=== PATIENT | male | born 1980 | race Caucasian/White ===

== ENCOUNTER 2017-08-16 10:01 | Emergency (ER) | payer BC ==
[~2017-08-16] VITALS: Ht 190.5 cm; Wt 115.3 kg
[~2017-08-16 10:01] MED LIST: BACT800T5 PO; CEPH500C3 PO
[2017-08-16 10:06] VITALS: BP 156/99; PULSE 86; RESP 18; TEMP 98.5; O2SAT 99
--- NOTE | 2017-08-16 10:58 | PD ---
HPI Chief Complaint: Skin Problem Time Seen by Provider: 10:36 Travel History International Travel<30 days: No Contact w/Intl Traveler<30days: No Traveled to known affect area: No History of Present Illness HPI 37-year-old male presents emergency department for evaluation of a lesion to the left cheek that is been present for at least one year. Patient states that he decided to come in today because he is having difficulty shaving around the area. He denies any significant pain or problems with eating or performing ADLs. Says that he would like this to be removed. Denies any numbness or tingling. He has no other complaints other than difficulty shaving around this lesion. She has not been evaluated previously for this problem. [facility] Past Medical History Diminished Hearing: No Tetanus Vaccination: Unknown ?: Not Social History Alcohol Use: No Tobacco Use: No Substance Use: No Allergies-Medications (Allergen,Severity, Reaction): Coded Allergies: No Known Allergies (Unverified Adverse Reaction, Unknown, 08/16/17) Reported Meds & Prescriptions Reported Meds & Active Scripts Active No Active Prescriptions or Reported Medications Review of Systems Except as stated in HPI: all other systems reviewed are Neg Physical Exam Narrative GENERAL: Well-nourished, well-developed patient. SKIN: Focused skin assessment warm/dry. Left cheek-just inferior to the maxillary bone, 5 cm round, fluctuant cystic structure, mobile. Nonerythematous or edematous. No central puncta. No extension into the oral cavity. HEAD: Normocephalic. EYES: No scleral icterus. No injection or drainage. NECK: Supple, trachea midline. No JVD or lymphadenopathy. CARDIOVASCULAR: Regular rate and rhythm without murmurs, gallops, or rubs. RESPIRATORY: Breath sounds equal bilaterally. No accessory muscle use. MUSCULOSKELETAL: No cyanosis, or edema. BACK: Nontender without obvious deformity. No CVA tenderness. Data Data Last Documented VS Vital Signs Date Time Temp Pulse Resp B/P (MAP) Pulse Ox O2 Delivery O2 Flow Rate FiO2 08/16/17 10:06 98.5 86 18 156/99 (118) 99 Orders Orders Ed Discharge Order (08/16/17 10:58) MDM Medical Decision Making Medical Screen Exam Complete: Yes Emergency Medical Condition: Yes Differential Diagnosis Left cheek cyst, lipoma, cysts, abscess Narrative Course 37-year-old male presents emergency room for evaluation of a cyst on his left cheek. There is no evidence of infectious process or necessity to perform an I& D. Because the location and size of this cystic structure, will avoid opening to reduce complications. Vital signs are stable. Patient is stable. Patient denies any significant pain , nerve deficits or neuropathy. His complaint is that he is having difficult time shaving around the cyst. Patient is advised to follow-up with dermatology and consider a maxillofacial specialist. Patient states understanding will comply. Patient is to follow-up with [facility] for these referrals. Diagnosis Primary Impression: Skin cyst Referrals: Donte Ramirez MD [facility] Parking Analyst Additional Instructions: Apply warm compresses to the face daily to help reduce the size. If this worsens or enlarges the lesion, use ice. Follow-up with the metal welder for further evaluation. [facility] is an option for your primary care. Avoid irritating the lesion to reduce possibility of it bursting. Scripts No Active Prescriptions or Reported Meds Disposition: 01 DISCHARGE HOME Condition: Stable Carie Victoria August 16, 2017 10:58
== END 2017-08-16 11:03 | disposition home or self-care (01) ==
LOC: PHEFT 10:01
DX: L72.3 Sebaceous cyst (principal)
CPT/HCPCS: 99282